=== PATIENT | female | born 1990 | race Hispanic/Latino ===

== ENCOUNTER 2018-04-19 11:05 | Emergency (ER) | payer MEDICAID ==
[2018-04-19 11:19] VITALS: BMI 17.9
[2018-04-19 11:22] VITALS: O2SAT 100
[2018-04-19 11:34] VITALS: RESP 17
[2018-04-19 12:22] LABS: PH,URINE 7.5 (4.7-8.0); URINE BILIRUBIN NEGATIVE (NEGATIVE); URINE BLOOD NEGATIVE (NEGATIVE); URINE GLUCOSE (UA) NEGATIVE (NEGATIVE); URINE LEUKOCYTE ESTERASE NEGATIVE Leu/uL (NEGATIVE); URINE PROTEIN NEGATIVE mg/dL (<30 mg/dL); URINE UROBILINOGEN 0.2 E.U./dL (<1 E.U./dL)
[2018-04-19 12:22] LABS: BASO # 0.03 K/mm3 (0.0-2.0); BASO % 0.8 % (0.0-3.0); EOS % 1.1 % (1.5-5.0); GRAN # 1.86 (1.4-6.5); GRAN % 49.2 % (50.0-68.0); HEMOGLOBIN 13.9 g/dL (12.0-16.0); LYMPH # 1.5 (1.2-3.4); LYMPH % 40.2 % (22.0-35.0); MEAN CELL VOLUME 88.3 fl (80.0-105.0); MEAN CORPUSCULAR HEMOGLOBIN 29.1 pg (25.0-35.0); MEAN PLATELET VOLUME 12.8 fl (7.0-11.0); MONO # 0.3 (0.1-0.6); MONO % 8.7 % (1.0-6.0); RBC 4.77 10^6/uL (3.5-6.1); RED CELL DISTRIBUTION WIDTH 12.7 % (11.5-14.5); WHITE BLOOD COUNT 3.8 10^3/uL (4.5-11.0)
[2018-04-19 12:28] LABS: URINE APPEARANCE CLEAR (CLEAR); URINE COLOR YELLOW (YELLOW)
[2018-04-19 12:31] LABS: INR 1.08; PARTIAL THROMBOPLASTIN TIME 32.5 Seconds (25.1-36.5); PROTHROMBIN TIME 12.4 SECONDS (9.4-12.5)
[2018-04-19 12:36] LABS: ALB/GLOB RATIO 1.7 (1.1-1.8); ALBUMIN 4.9 g/dL (3.0-4.8); ALT/SGPT 21 U/L (7-56); AST/SGOT 18 U/L (14-36); BLOOD UREA NITROGEN 13 mg/dL (7-21); CALCIUM 9.9 mg/dL (8.4-10.5); GFR NON-AFRICAN AMERICAN > 60
[2018-04-19 12:44] LABS: TROPONIN I < 0.01 ng/mL
[2018-04-19 12:47] LABS: D DIMER < 200 ng/mlDDU (0-243)
--- NOTE | 2018-04-19 12:59 | ED PDOC ---
Arrival/HPI - General Chief Complaint: Palpitations Time Seen by Provider: 04/19/18 11:14 Historian: Patient - History of Present Illness Narrative History of Present Illness (Text): 04/19/18 12:56 28yo female with pmhx of Asthma, PE (10yrs ago, no longer on medication), GERD who present with complaint of having flutter and then chest pain x weeks. States she came to ED today because it lasted longer than usually today. She denies recent surgery/travel, OCP use, cough, diaphoresis, fever, chills, nausea, vomiting, abdominal pain, dizziness, any other complaint. Past Medical History - Provider Review Nursing Documentation Reviewed: Yes - Cardiac Hx Cardiac Disorders: No - Pulmonary Hx Respiratory Disorders: Yes Hx Asthma: Yes Hx Pulmonary Edema: Yes - Neurological Hx Neurological Disorder: No - HEENT Hx HEENT Disorder: No - Renal Hx Renal Disorder: No - Endocrine/Metabolic Hx Endocrine Disorders: No - Hematological/Oncological Hx Blood Disorders: No - Integumentary Hx Dermatological Disorder: No - Musculoskeletal/Rheumatological Hx Musculoskeletal Disorders: No - Gastrointestinal Hx Gastrointestinal Disorders: No - Genitourinary/Gynecological Hx Genitourinary Disorders: No - Psychiatric Hx Psychophysiologic Disorder: No Hx Substance Use: No - Anesthesia Hx Anesthesia: No Family/Social History - Physician Review Nursing Documentation Reviewed: Yes Family/Social History: Unknown Family HX Smoking Status: Never Smoked Hx Alcohol Use: Yes Frequency of alcohol use: Socially Hx Substance Use: No Allergies/Home Meds Allergies/Adverse Reactions: Allergies almond Allergy (Verified 04/19/18 11:28) ITCHING amoxicillin Allergy (Verified 04/19/18 11:28) ITCHING bee venom protein (honey bee) Allergy (Verified 04/19/18 11:28) SWELLING Home Medications: Home Meds Medication Instructions Recorded Confirmed RX: Albuterol HFA [Ventolin HFA 90 2 puff NEB Q6 PRN 04/19/18 04/19/18 mcg/actuation (8 g)] Review of Systems - Physician Review All systems were reviewed & negative as marked: Yes - Review of Systems Constitutional: Normal Eyes: Normal ENT: Normal Respiratory: Normal Cardiovascular: Chest Pain, Palpitations Gastrointestinal: Normal Genitourinary Female: Normal Musculoskeletal: Normal Skin: Normal Neurological: Normal Endocrine: Normal Hemo/Lymphatic: Normal Psychiatric: Normal Physical Exam Vital Signs Reviewed: Yes Vital Signs Temp Pulse Resp BP Pulse Ox 04/19/18 11:29 97.8 F 76 17 120/73 100 04/19/18 11:05 98 F 72 15 120/73 100 Temperature: Afebrile Blood Pressure: Normal Pulse: Regular Respiratory Rate: Normal Appearance: Positive for: Well-Appearing, Non-Toxic, Comfortable Pain Distress: None Mental Status: Positive for: Alert and Oriented X 3 - Systems Exam Head: Present: Atraumatic, Normocephalic Pupils: Present: PERRL Extroacular Muscles: Present: EOMI Conjunctiva: Present: Normal Mouth: Present: Moist Mucous Membranes Neck: Present: Normal Range of Motion Respiratory/Chest: Present: Clear to Auscultation, Good Air Exchange. No: Respiratory Distress, Accessory Muscle Use, Wheezes, Decreased Breath Sounds, Rales, Retracting, Rhonchi Cardiovascular: Present: Regular Rate and Rhythm, Normal S1, S2. No: Murmurs Abdomen: No: Tenderness, Distention, Peritoneal Signs Back: Present: Normal Inspection Upper Extremity: Present: Normal Inspection. No: Cyanosis, Edema Lower Extremity: Present: Normal Inspection. No: Edema Neurological: Present: GCS=15, CN II-XII Intact, Speech Normal Skin: Present: Warm, Dry, Normal Color. No: Rashes Psychiatric: Present: Alert, Oriented x 3, Normal Insight, Normal Concentration Medical Decision Making ED Course and Treatment: 04/19/18 17:02 28yo female ho present with complaint of having flutter with chest pain x weeks. Labs D-dimer EKG chest xray ASA 325mg Reassess Lab was reviewed and unremarkable. D-dimer wnl EKG NSR @62bpm Chest xray - IMPRESSION: No active disease. All result was DW the pt. She was strongly advised to avoid any strenuous activity until she is cleared by a Sales Office Assistant. Advised TRT ED for worsening symptoms - Lab Interpretations Lab Results: 04/19/18 12:05 04/19/18 12:05 Lab Results 04/19/18 12:10: Urine Color Yellow, Urine Appearance Clear, Urine pH 7.5, Ur Specific [place] 1.020, Urine Protein Negative, Urine Glucose (UA) Negative, Uri ne Ketones Negative, Urine Blood Negative, Urine Nitrate Negative, Urine Bilirubin Negative, Urine Urobilinogen 0.2, Ur Leukocyte Esterase Negative 04/19/18 12:05: Sodium 140, Potassium 4.2, Chloride 105, Carbon Dioxide 26, Anion Gap 13, BUN 13, Creatinine 0.7, Est GFR ( Amer) > 60, Est GFR (Non- Af Amer) > 60, Random Glucose 92, Calcium 9.9, Magnesium 1.9, Total Bilirubin 1.0, AST 18, ALT 21, Alkaline Phosphatase 51, Lactate Dehydrogenase 331 L, Total Creatine Kinase 53, Troponin I < 0.01, Total Protein 7.8, Albumin 4.9 H, Globulin 2.9, Albumin/Globulin Ratio 1.7 04/19/18 12:05: PT 12.4, INR 1.08, APTT 32.5, D-Dimer, Quantitative < 200 04/19/18 12:05: WBC 3.8 L, RBC 4.77, Hgb 13.9, Hct 42.1, MCV 88.3, MCH 29.1, MCHC 33.0, RDW 12.7, Plt Count 182, MPV 12.8 H, Gran % 49.2 L, Lymph % (Auto) 40.2 H, [place] % (Auto) 8.7 H, Eos % (Auto) 1.1 L, Baso % (Auto) 0.8, Gran # 1.86, Lymph # (Auto) 1.5, [place] # (Auto) 0.3, Eos # (Auto) 0.0, Baso # (Auto) 0.03 - RAD Interpretation Radiology Orders: 04/19/18 11:48 CHEST TWO VIEWS (PA/LAT) [RAD] Stat - Medication Orders Current Medication Orders: Discontinued Medications Aspirin (Aspirin) 325 mg PO STAT STA Stop: 04/19/18 11:49 Last Admin: 04/19/18 11:57 Dose: 325 mg Disposition/Present on Arrival - Present on Arrival Any Indicators Present on Arrival: No History of DVT/PE: Yes History of Uncontrolled Diabetes: No Urinary Catheter: No History of Decub. Ulcer: No History Surgical Site Infection Following: None - Disposition Have Diagnosis and Disposition been Completed?: Yes Diagnosis: Chest pain Disposition: HOME/ ROUTINE Disposition Time: 13:15 Patient Plan: Discharge Condition: STABLE Discharge Instructions (ExitCare): Chest Pain, Chest Pain (ED) Additional Instructions: Follow up with a broadcast maintenance technician Avoid any strenuous activity until your cleared by a broadcast maintenance technician Return to ED for any new or worsening symptoms Referrals: PCP,NO [Primary Care Provider] - Follow up with primary Forms: [employer] ([place]inamese)
--- NOTE | 2018-04-19 13:15 | RAD ---
Date of service: 04/19/2018 HISTORY: chest pain COMPARISON: No prior. TECHNIQUE: Chest PA and lateral FINDINGS: LUNGS: No active pulmonary disease. PLEURA: No significant pleural effusion identified. No pneumothorax apparent. CARDIOVASCULAR: No aortic atherosclerotic calcification present. Normal cardiac size. No pulmonary vascular congestion. OSSEOUS STRUCTURES: No significant abnormalities. VISUALIZED UPPER ABDOMEN: Normal. OTHER FINDINGS: None. IMPRESSION: No active disease.
[2018-04-19 13:46] VITALS: BP 107/67; PULSE 65; TEMP 97.6
--- NOTE | 2018-04-19 15:47 | CARD ---
APPROVED REPORT Date of service: 04/19/2018 EKG Measurement Heart [id number] MD [id number] <Conclusion> Normal sinus rhythm with sinus arrhythmia Normal ECG
== END 2018-04-19 13:47 | disposition home or self-care (01) ==
LOC: ED 11:05
DX: R07.9 Chest pain, unspecified (principal); K21.9 Gastro-esophageal reflux disease without esophagitis; Z86.711 Personal history of pulmonary embolism